=== PATIENT | male | born 1995 | race Caucasian/White ===

== ENCOUNTER 2022-02-23 16:36 | Emergency (ER) | payer OTHER ==
[~2022-02-23] VITALS: Ht 185.4 cm; Wt 93.0 kg
== END 2022-02-23 20:56 | disposition home or self-care (01) ==
LOC: ER 16:36
DX: S01.81XA Laceration without foreign body of other part of head, initial encounter (principal); X58.XXXA Exposure to other specified factors, initial encounter; Y93.18 Activity, surfing, windsurfing and boogie boarding; Y92.828 Other wilderness area as the place of occurrence of the external cause; Y99.9 Unspecified external cause status

== ENCOUNTER 2022-03-04 08:25 | Emergency (ER) | payer OTHER ==
[~2022-03-04] VITALS: Ht 182.9 cm; Wt 93.0 kg
== END 2022-03-04 09:55 | disposition home or self-care (01) ==
LOC: ER 08:25
DX: Z48.02 Encounter for removal of sutures (principal)